=== PATIENT | male | born 1975 | race Caucasian/White ===

== ENCOUNTER 2018-10-14 21:44 | Inpatient (IN) | payer MEDICAID, OTHER ==
[2018-10-14] MEDS ORDERED: Sodium Chloride 0.9% 1,000 ML IV SCH (23:15)
[2018-10-14] MEDS ORDERED: Acetaminophen 325 MG Tab PO ONE (23:26)
[2018-10-14] MEDS ORDERED: Piperacillin/Tazobactam 4.5 GM in Sodium Chloride 0.9% 100 ML IV ONE (23:29)
[2018-10-15] MEDS ORDERED: Vancomycin 1.75 GM in Sodium Chloride 0.9% 500 ML IV ONE (00:39)
[2018-10-15] MEDS ORDERED: Ketorolac 30 MG/ML SDV IVPUSH SCH (00:45)
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
[2018-10-15] MEDS ORDERED: Lactated Ringers 1,000 ML IV ONE (01:43)
[2018-10-15] MEDS ORDERED: Acetaminophen 325 MG/10.15 ML ML PO PRN (02:40)
[2018-10-15] MEDS ORDERED: Lactated Ringers 1,000 ML IV SCH ×2 (02:45→04:30)
[2018-10-15] MEDS ORDERED: Acetaminophen 325 MG Tab PO PRN (05:01)
--- NOTE | 2018-10-15 08:16 | CR ---
Chest: Frontal view of the chest was obtained. Comparison: No prior chest x-ray. Heart size and mediastinum are normal. Lungs are clear. Bony structures are unremarkable. Impression: 1. Nothing acute is seen on frontal chest x-ray. Diagnostic code #1
--- NOTE | 2018-10-15 13:06 | PCM.HP.2 ---
<PowellTimbo - Last Filed: 10/15/18 12:56> H&P History of Present Illness - General Date of Service: 10/15/18 Admit Problem/Dx: Admission Diagnosis/Problem Admission Diagnosis/Problem Sepsis Source of Information: Patient History Limitations: Reports: No Limitations - History of Present Illness Initial Comments - Free Text/Narative: Patient is 43 yo male with history of crush fracture to left leg presents to med /surg upon admission from ED due to high fever and bacteremia. Patient states he had been feeling feverish for approximately 3 days. He took his temperature at home yesterday and it was 103.9. He decided to come to the ED at this time. His temperature was recorded as 103.9 in the ED as well. Patient states he was having chills and feeling sweaty. patient had a crush injury to his left femur on 08/30/18 for which he had a nicolasa and screws placed. he states that there has been no pain outside of normal associated with the wound. it is not red or swollen and he able to bear weight on it. He has been seeing PT for his rehabilitation. He had left lynnette in the wound, and they were removed in the ED before admission. Patient reports that he had a urinary catheter placed during surgery, which was not removed until two weeks post surgery. He has been having dysuria since the catheter was placed. He notes cloudy and foul-smelling urine for the past 2 weeks. He has not noticed any raman blood in his urine. He also notes some pain on his sides. Initial labs taken in ER show WBC 10.34, Neutrophils 91.6, Sodium 135, Glucose 200, CRP 18. UA shows 1+ blood, 1+ leukocyte esterase, 5-10 WBC - Related Data Allergies/Adverse Reactions: Allergies Allergy/AdvReac Type Severity Reaction Status Date / Time hydrocodone Allergy Itching Verified 10/14/18 22:00 Home Medications: Home Meds Acetaminophen [Tylenol Extra Strength] 1,000 mg PO Q4HR PRN 10/15/18 [History] Ibuprofen 400 mg PO Q4HR PRN 10/15/18 [History] Past Medical History - Past Health History Medical/Surgical History: Denies Medical/Surgical History HEENT History: Reports: Impaired Vision, Other (See Below) Other HEENT History: Pt verbalized is suppose to wear glasses but does not have any Genitourinary History: Reports: Other (See Below) Other Genitourinary History: Pt has difficulty voiding in public Musculoskeletal History: Reports: Other (See Below) Other Musculoskeletal History: left femur fracture- has nicolasa in femur at this time. This was related to a crushing injury 08/30/18 - Past Surgical History HEENT Surgical History: Reports: None Male Surgical History: Reports: None Musculoskeletal Surgical History: Reports: None Social & Family History - Family History Family Medical History: Noncontributory - Tobacco Use Smoking Status *Q: Former Smoker Years of Tobacco use: 13 Packs/Tins Daily: 1 Used Tobacco, but Quit: No Tobacco Use Comment: Pt quit cigarettes 7 years ago., Had smoked for 6 years. Pt changed to long cut chew when quit cigarettes Second Hand Smoke Exposure: No - Caffeine Use Caffeine Use: Reports: Soda - Recreational Drug Use Recreational Drug Use: No H&P Review of Systems - Review of Systems: General: Reports: Fever, Chills, Diaphoresis HEENT: Reports: Headaches (associated with fever), Visual Changes (Blurry vision associated with fever) Pulmonary: Reports: Shortness of Breath, Cough (dry cough) Cardiovascular: Reports: No Symptoms Gastrointestinal: Reports: No Symptoms Genitourinary: Reports: Dysuria, Frequency, Burning, Urgency, Flank Pain Musculoskeletal: Reports: Leg Pain Skin: Reports: No Symptoms Psychiatric: Reports: No Symptoms Neurological: Reports: No Symptoms Hematologic/Lymphatic: Reports: No Symptoms Immunologic: Reports: No Symptoms Exam - Vital Signs Vital Signs: Last Vital Signs Temp 99.7 F 10/15/18 11:26 Pulse 80 10/15/18 11:26 Resp 14 10/15/18 11:26 BP 118/62 10/15/18 11:26 Pulse Ox 98 10/15/18 11:26 Weight: 78.653 kg - Exam General: Alert, Oriented, Cooperative HEENT: Conjunctiva Clear, EACs Clear, EOMI, Hearing Intact, Mucosa Moist & [place] , Nares Patent, Pupils Equal, Pupils Reactive. No: Scleral Icterus Neck: Supple, Trachea Midline, Full Range of Motion. No: Lymphadenopathy, JVD, Thyromegaly Lungs: Clear to Auscultation, Normal Respiratory Effort. No: Crackles, Rales, Wheezing Cardiovascular: Regular Rate, Regular Rhythm, Normal S1, Normal S2. No: Systolic Murmur, Diastolic Murmur, Rubs, Gallop/S3, Gallop/S4 GI/Abdominal Exam: Normal Bowel Sounds, Soft, Non-Tender, No Organomegaly, No Distention, No Mass (Male) Exam: Deferred Rectal (Males) Exam: Deferred Back Exam: Normal Inspection, Full Range of Motion. No: CVA Tenderness (L), CVA Tenderness (R), Paraspinal Tenderness, Vertebral Tenderness Extremities: Normal Inspection, Normal Range of Motion, Non-Tender, No Pedal Edema, Leg Pain. No: Joint Swelling Skin: Warm, Dry, Intact Neurological: Cranial Nerves Intact, Normal Speech, Normal Tone. No: Focal Deficit Neuro Extensive - Mental Status: Alert, Oriented x3, Normal Mood/Affect, Normal Cognition, Memory Intact Neuro Extensive - Motor, Sensory, Reflexes: CN II-XII Intact. No: Dysarthria Psychiatric: Alert, Normal Affect, Normal Mood. No: Anxious, Agitated - Patient Data Lab Results Last 24 hrs: Laboratory Results - last 24 hr 10/14/18 10/14/18 10/14/18 Range/Units 22:15 22:15 22:15 WBC 10.34 H (4.23-9.07) K/mm3 RBC 4.15 L (4.63-6.08) M/mm3 Hgb 12.1 L D (13.7-17.5) gm/L Hct 37.7 L (40.1-51.0) % MCV 90.8 (79.0-92.2) fl MCH 29.2 (25.7-32.2) pg MCHC 32.1 L (32.2-35.5) g/dl RDW Std Deviation 41.9 (35.1-43.9) fL Plt Count 241 (163-337) K/mm3 MPV 9.6 (9.4-12.3) fl Neut % (Auto) 91.6 H (34.0-67.9) % Lymph % (Auto) 4.8 L (21.8-53.1) % [place] % (Auto) 3.3 L (5.3-12.2) % Eos % (Auto) 0 L (0.8-7.0) Baso % (Auto) 0.1 (0.1-1.2) % Neut # (Auto) 9.47 H (1.78-5.38) K/mm3 Lymph # (Auto) 0.50 L (1.32-3.57) K/mm3 [place] # (Auto) 0.34 (0.30-0.82) K/mm3 Eos # (Auto) 0.00 L (0.04-0.54) K/mm3 Baso # (Auto) 0.01 (0.01-0.08) K/mm3 Manual Slide Review Normal smear Sodium 135 L (136-145) mEq/L Potassium 3.7 (3.5-5.1) mEq/L Chloride 99 (98-107) mEq/L Carbon Dioxide 29 (21-32) mEq/L Anion Gap 10.7 (5-15) BUN 10 (7-18) mg/dL Creatinine 1.0 (0.7-1.3) mg/dL Est Cr Clr Drug Dosing 103.54 mL/min Estimated GFR (MDRD) > 60 (>60) mL/min BUN/Creatinine Ratio 10.0 L (14-18) Glucose 200 H (74-106) mg/dL Lactic Acid (0.4-2.0) mmol/L Calcium 8.4 L D (8.5-10.1) mg/dL Total Bilirubin 0.3 (0.2-1.0) mg/dL AST 18 (15-37) U/L ALT 26 (16-63) U/L Alkaline Phosphatase 159 H (46-116) U/L C-Reactive Protein 18.0 H* (<1.0) mg/dL Total Protein 6.4 (6.4-8.2) g/dl Albumin 3.0 L (3.4-5.0) g/dl Globulin 3.4 gm/dL Albumin/Globulin Ratio 0.9 L (1-2) Urine Color (Yellow) Urine Appearance (Clear) Urine pH (5.0-8.0) Ur Specific [place] (1.005-1.030) Urine Protein (Negative) Urine Glucose (UA) (Negative) Urine Ketones (Negative) Urine Occult Blood (Negative) Urine Nitrite (Negative) Urine Bilirubin (Negative) Urine Urobilinogen (0.2-1.0) Ur Leukocyte Esterase (Negative) Urine RBC (0-5) /hpf Urine WBC (0-5) /hpf Ur Epithelial Cells (0-5) /hpf Urine Bacteria (FEW) /hpf Urine Mucus (FEW) /hpf 10/14/18 10/15/18 Range/Units 23:15 04:40 WBC (4.23-9.07) K/mm3 RBC (4.63-6.08) M/mm3 Hgb (13.7-17.5) gm/L Hct (40.1-51.0) % MCV (79.0-92.2) fl MCH (25.7-32.2) pg MCHC (32.2-35.5) g/dl RDW Std Deviation (35.1-43.9) fL Plt Count (163-337) K/mm3 MPV (9.4-12.3) fl Neut % (Auto) (34.0-67.9) % Lymph % (Auto) (21.8-53.1) % [place] % (Auto) (5.3-12.2) % Eos % (Auto) (0.8-7.0) Baso % (Auto) (0.1-1.2) % Neut # (Auto) (1.78-5.38) K/mm3 Lymph # (Auto) (1.32-3.57) K/mm3 [place] # (Auto) (0.30-0.82) K/mm3 Eos # (Auto) (0.04-0.54) K/mm3 Baso # (Auto) (0.01-0.08) K/mm3 Manual Slide Review Sodium (136-145) mEq/L Potassium (3.5-5.1) mEq/L Chloride (98-107) mEq/L Carbon Dioxide (21-32) mEq/L Anion Gap (5-15) BUN (7-18) mg/dL Creatinine (0.7-1.3) mg/dL Est Cr Clr Drug Dosing mL/min Estimated GFR (MDRD) (>60) mL/min BUN/Creatinine Ratio (14-18) Glucose (74-106) mg/dL Lactic Acid 1.3 (0.4-2.0) mmol/L Calcium (8.5-10.1) mg/dL Total Bilirubin (0.2-1.0) mg/dL AST (15-37) U/L ALT (16-63) U/L Alkaline Phosphatase (46-116) U/L C-Reactive Protein (<1.0) mg/dL Total Protein (6.4-8.2) g/dl Albumin (3.4-5.0) g/dl Globulin gm/dL Albumin/Globulin Ratio (1-2) Urine Color Yellow (Yellow) Urine Appearance Clear (Clear) Urine pH 6.0 (5.0-8.0) Ur Specific [place] <=1.005 (1.005-1.030) Urine Protein Negative (Negative) Urine Glucose (UA) Negative (Negative) Urine Ketones Negative (Negative) Urine Occult Blood 1+ H (Negative) Urine Nitrite Negative (Negative) Urine Bilirubin Negative (Negative) Urine Urobilinogen 0.2 (0.2-1.0) Ur Leukocyte Esterase 1+ H (Negative) Urine RBC 0-5 (0-5) /hpf Urine WBC 5-10 H (0-5) /hpf Ur Epithelial Cells 0-5 (0-5) /hpf Urine Bacteria Rare (FEW) /hpf Urine Mucus Not seen (FEW) /hpf Result Diagrams: 10/14/18 22:15 10/14/18 22:15 [place] Results Last 24 hrs: Microbiology 10/14/18 23:15 Anaerobic Blood Culture - Preliminary Blood Gram Negative Rods 10/14/18 22:00 Influenza Type A Antigen Screen - Final Nasal Aspirate, Right NEGATIVE INFLUENZA A VIRUS AG REFERENCE RANGE: NEGATIVE Influenza Type B Antigen Screen - Final NEGATIVE INFLUENZA B VIRUS AG REFERENCE RANGE: NEGATIVE - Problem List (1) Sepsis SNOMED Code(s): 99644281 ICD Code: A41.9 - SEPSIS, UNSPECIFIED ORGANISM Status: Acute Current Visit: Yes Qualifiers: Sepsis type: sepsis due to unspecified organism Sepsis acute organ dysfunction status: without acute organ dysfunction Qualified Code(s): A41.9 - Sepsis, unspecified organism (2) UTI, Urinary tract infectious disease SNOMED Code(s): 43228015 ICD Code: N39.0 - URINARY TRACT INFECTION, SITE NOT SPECIFIED Status: Acute Current Visit: No Problem List Initiated/Reviewed/Updated: Yes Orders Last 24hrs: Active Orders 24 hr Category Date Time Status Admission Status [Patient Status] [ADT] Routine ADT 10/15/18 01:27 Active Activity as Tolerated [RC] BID Care 10/15/18 02:38 Active Antiembolic Devices [RC] BID Care 10/15/18 09:14 Active Regular Diet [DIET] Diet 10/15/18 Breakfast Active CULTURE BLOOD [BC] Stat Lab 10/14/18 23:15 Results CULTURE BLOOD [BC] Stat Lab 10/14/18 23:25 Received GLYCOSYLATED HEMOGLOBIN,HGBA1C [CHEM] Routine Lab 10/16/18 06:00 Ordered Acetaminophen [Tylenol] Med 10/15/18 07:15 Active 975 mg PO Q6H PRN SCD [Sequential Compression Device] [OM.PC] Routine Oth 10/15/18 09:14 Ordered Resuscitation Status Routine Resus Stat 10/15/18 02:36 Ordered Medication Orders Acetaminophen (Tylenol) 975 mg PO Q6H PRN PRN Reason: Pain/Fever Assessment/Plan Comment:: Assessment: Acute: Bacteremia,Sepsis * Elevated WBC at 10.34 CRP=18 * Fever 103.9 upon admission from ED * Blood cultures growing out gram negative rods Hyperglycemia * Glucose 200 on admission from ED * Continue to monitor * Patient denies history of diabetes Urinary tract infection * Patient reports symptoms: dysuria, cloudy, foul-smelling urine, flank pain * Blood, leukocyte esterase, WBC in urine * Had urinary catheter for 2 weeks post surgery Plan: Admit to med/surg IV antibiotics for bacteremia Sepsis protocol Monitor blood glucose Monitor left leg for signs of infection Activity as tolerated PT/OT for therapies Additional orders as above Code status= full code Length of stay = 3-4 days Prognosis guarded-serious <Derian Petersen T - Last Filed: 10/15/18 22:11> H&P History of Present Illness - General Admit Problem/Dx: Admission Diagnosis/Problem Admission Diagnosis/Problem Sepsis H&P Review of Systems - Review of Systems: Review Of Systems: See Below Exam - Exam Exam: See Below - Vital Signs Vital Signs: Last Vital Signs Temp 37.9 C 10/15/18 21:38 Pulse 101 H 10/15/18 21:35 Resp 20 10/15/18 21:35 BP 148/64 H 10/15/18 21:35 Pulse Ox 100 10/15/18 21:35 - Patient Data Lab Results Last 24 hrs: Laboratory Results - last 24 hr 10/14/18 10/14/18 10/14/18 Range/Units 22:15 22:15 22:15 WBC 10.34 H (4.23-9.07) K/mm3 RBC 4.15 L (4.63-6.08) M/mm3 Hgb 12.1 L D (13.7-17.5) gm/L Hct 37.7 L (40.1-51.0) % MCV 90.8 (79.0-92.2) fl MCH 29.2 (25.7-32.2) pg MCHC 32.1 L (32.2-35.5) g/dl RDW Std Deviation 41.9 (35.1-43.9) fL Plt Count 241 (163-337) K/mm3 MPV 9.6 (9.4-12.3) fl Neut % (Auto) 91.6 H (34.0-67.9) % Lymph % (Auto) 4.8 L (21.8-53.1) % [place] % (Auto) 3.3 L (5.3-12.2) % Eos % (Auto) 0 L (0.8-7.0) Baso % (Auto) 0.1 (0.1-1.2) % Neut # (Auto) 9.47 H (1.78-5.38) K/mm3 Lymph # (Auto) 0.50 L (1.32-3.57) K/mm3 [place] # (Auto) 0.34 (0.30-0.82) K/mm3 Eos # (Auto) 0.00 L (0.04-0.54) K/mm3 Baso # (Auto) 0.01 (0.01-0.08) K/mm3 Manual Slide Review Normal smear Sodium 135 L (136-145) mEq/L Potassium 3.7 (3.5-5.1) mEq/L Chloride 99 (98-107) mEq/L Carbon Dioxide 29 (21-32) mEq/L Anion Gap 10.7 (5-15) BUN 10 (7-18) mg/dL Creatinine 1.0 (0.7-1.3) mg/dL Est Cr Clr Drug Dosing 103.54 mL/min Estimated GFR (MDRD) > 60 (>60) mL/min BUN/Creatinine Ratio 10.0 L (14-18) Glucose 200 H (74-106) mg/dL Lactic Acid (0.4-2.0) mmol/L Calcium 8.4 L D (8.5-10.1) mg/dL Total Bilirubin 0.3 (0.2-1.0) mg/dL AST 18 (15-37) U/L ALT 26 (16-63) U/L Alkaline Phosphatase 159 H (46-116) U/L C-Reactive Protein 18.0 H* (<1.0) mg/dL Total Protein 6.4 (6.4-8.2) g/dl Albumin 3.0 L (3.4-5.0) g/dl Globulin 3.4 gm/dL Albumin/Globulin Ratio 0.9 L (1-2) Urine Color (Yellow) Urine Appearance (Clear) Urine pH (5.0-8.0) Ur Specific [place] (1.005-1.030) Urine Protein (Negative) Urine Glucose (UA) (Negative) Urine Ketones (Negative) Urine Occult Blood (Negative) Urine Nitrite (Negative) Urine Bilirubin (Negative) Urine Urobilinogen (0.2-1.0) Ur Leukocyte Esterase (Negative) Urine RBC (0-5) /hpf Urine WBC (0-5) /hpf Ur Epithelial Cells (0-5) /hpf Urine Bacteria (FEW) /hpf Urine Mucus (FEW) /hpf 10/14/18 10/15/18 10/15/18 Range/Units 23:15 04:40 14:18 WBC (4.23-9.07) K/mm3 RBC (4.63-6.08) M/mm3 Hgb (13.7-17.5) gm/L Hct (40.1-51.0) % MCV (79.0-92.2) fl MCH (25.7-32.2) pg MCHC (32.2-35.5) g/dl RDW Std Deviation (35.1-43.9) fL Plt Count (163-337) K/mm3 MPV (9.4-12.3) fl Neut % (Auto) (34.0-67.9) % Lymph % (Auto) (21.8-53.1) % [place] % (Auto) (5.3-12.2) % Eos % (Auto) (0.8-7.0) Baso % (Auto) (0.1-1.2) % Neut # (Auto) (1.78-5.38) K/mm3 Lymph # (Auto) (1.32-3.57) K/mm3 [place] # (Auto) (0.30-0.82) K/mm3 Eos # (Auto) (0.04-0.54) K/mm3 Baso # (Auto) (0.01-0.08) K/mm3 Manual Slide Review Sodium (136-145) mEq/L Potassium (3.5-5.1) mEq/L Chloride (98-107) mEq/L Carbon Dioxide (21-32) mEq/L Anion Gap (5-15) BUN (7-18) mg/dL Creatinine (0.7-1.3) mg/dL Est Cr Clr Drug Dosing mL/min Estimated GFR (MDRD) (>60) mL/min BUN/Creatinine Ratio (14-18) Glucose (74-106) mg/dL Lactic Acid 1.3 (0.4-2.0) mmol/L Calcium (8.5-10.1) mg/dL Total Bilirubin (0.2-1.0) mg/dL AST (15-37) U/L ALT (16-63) U/L Alkaline Phosphatase (46-116) U/L C-Reactive Protein 18.3 H* (<1.0) mg/dL Total Protein (6.4-8.2) g/dl Albumin (3.4-5.0) g/dl Globulin gm/dL Albumin/Globulin Ratio (1-2) Urine Color Yellow (Yellow) Urine Appearance Clear (Clear) Urine pH 6.0 (5.0-8.0) Ur Specific [place] <=1.005 (1.005-1.030) Urine Protein Negative (Negative) Urine Glucose (UA) Negative (Negative) Urine Ketones Negative (Negative) Urine Occult Blood 1+ H (Negative) Urine Nitrite Negative (Negative) Urine Bilirubin Negative (Negative) Urine Urobilinogen 0.2 (0.2-1.0) Ur Leukocyte Esterase 1+ H (Negative) Urine RBC 0-5 (0-5) /hpf Urine WBC 5-10 H (0-5) /hpf Ur Epithelial Cells 0-5 (0-5) /hpf Urine Bacteria Rare (FEW) /hpf Urine Mucus Not seen (FEW) /hpf Result Diagrams: 10/14/18 22:15 10/14/18 22:15 [place] Results Last 24 hrs: Microbiology 10/14/18 23:15 Anaerobic Blood Culture - Preliminary Blood Gram Negative Rods 10/14/18 22:00 Influenza Type A Antigen Screen - Final Nasal Aspirate, Right NEGATIVE INFLUENZA A VIRUS AG REFERENCE RANGE: NEGATIVE Influenza Type B Antigen Screen - Final NEGATIVE INFLUENZA B VIRUS AG REFERENCE RANGE: NEGATIVE Problem List Initiated/Reviewed/Updated: Yes Orders Last 24hrs: Active Orders 24 hr Category Date Time Status Admission Status [Patient Status] [ADT] Routine ADT 10/15/18 01:27 Active Activity as Tolerated [RC] BID Care 10/15/18 02:38 Active Antiembolic Devices [RC] BID Care 10/15/18 09:14 Active Antiembolic Devices [RC] PER UNIT ROUTINE Care 10/15/18 15:57 Active Cardiac Monitoring [RC] CONTINUOUS Care 10/15/18 13:41 Active Height and Weight [RC] DAILY Care 10/15/18 13:40 Active Intake and Output [RC] 04,16 Care 10/15/18 13:41 Active Oxygen Therapy [RC] PRN Care 10/15/18 13:35 Active RT Aerosol Therapy [RC] ASDIRECTED Care 10/15/18 13:42 Active Up ad Shelli [RC] ASDIRECTED Care 10/15/18 13:40 Active VTE/DVT Education [RC] PER UNIT ROUTINE Care 10/15/18 13:35 Active Vital Signs [RC] Q4H Care 10/15/18 13:35 Active Consult to Case Management/Palliative Care Physician [CONS] Cons 10/15/18 13:40 Active Routine OT Evaluation and Treatment [CONS] Routine Cons 10/15/18 13:40 Active PT Evaluation and Treatment [CONS] Routine Cons 10/15/18 13:40 Active Regular Diet [DIET] Diet 10/15/18 Breakfast Active BASIC METABOLIC PANEL,BMP [CHEM] AM Lab 10/16/18 05:11 Ordered BASIC METABOLIC PANEL,BMP [CHEM] AM Lab 10/17/18 05:11 Ordered BASIC METABOLIC PANEL,BMP [CHEM] AM Lab 10/18/18 05:11 Ordered BASIC METABOLIC PANEL,BMP [CHEM] AM Lab 10/19/18 05:11 Ordered BASIC METABOLIC PANEL,BMP [CHEM] AM Lab 10/20/18 05:11 Ordered C-REACTIVE PROTEIN [CHEM] AM Lab 10/16/18 05:11 Ordered C-REACTIVE PROTEIN [CHEM] AM Lab 10/17/18 05:11 Ordered C-REACTIVE PROTEIN [CHEM] AM Lab 10/18/18 05:11 Ordered C-REACTIVE PROTEIN [CHEM] AM Lab 10/19/18 05:11 Ordered C-REACTIVE PROTEIN [CHEM] AM Lab 10/20/18 05:11 Ordered CBC WITH AUTO DIFF [HEME] AM Lab 10/16/18 05:11 Ordered CULTURE BLOOD [BC] Stat Lab 10/14/18 23:15 Results CULTURE BLOOD [BC] Stat Lab 10/14/18 23:25 Received GLYCOSYLATED HEMOGLOBIN,HGBA1C [CHEM] Routine Lab 10/16/18 06:00 Ordered MAGNESIUM [CHEM] AM Lab 10/16/18 05:11 Ordered MAGNESIUM [CHEM] AM Lab 10/17/18 05:11 Ordered MAGNESIUM [CHEM] AM Lab 10/18/18 05:11 Ordered MAGNESIUM [CHEM] AM Lab 10/19/18 05:11 Ordered MAGNESIUM [CHEM] AM Lab 10/20/18 05:11 Ordered Acetaminophen [Tylenol] Med 10/15/18 07:15 Active 975 mg PO Q6H PRN Albuterol/Ipratropium [DuoNeb 3.0-0.5 MG/3 ML] Med 10/15/18 13:40 Active 3 ml NEB Q4H PRN Bisacodyl [Dulcolax] Med 10/15/18 13:40 Active 5 mg PO DAILY PRN Docusate Sodium [Colace] Med 10/15/18 13:40 Active 100 mg PO BID PRN Docusate Sodium/Sennosides [Senna Plus] Med 10/15/18 13:40 Active 1 tab PO BID PRN HYDROmorphone [Dilaudid] Med 10/15/18 13:40 Active 0.25 mg IVPUSH Q2H PRN Ketorolac [Toradol] Med 10/15/18 13:40 Active 30 mg IV Q6H PRN Ondansetron [Zofran] Med 10/15/18 13:40 Active 4 mg IV Q6H PRN Piperacillin/Tazobactam [Piperacil-Tazobact] 4.5 gm Med 10/15/18 14:00 Active Sodium Chloride 0.9% [Normal Saline] 100 ml IV Q8H Polyethylene Glycol 3350 [MiraLAX] Med 10/15/18 13:40 Active 17 gm PO DAILY PRN Promethazine [Phenergan] 6.25 mg Med 10/15/18 13:40 Active Sodium Chloride 0.9% [Normal Saline] 50 ml IV Q6H Temazepam [Restoril] Med 10/15/18 21:00 Active 15 mg PO BEDTIME PRN SCD [Sequential Compression Device] [OM.PC] Routine Oth 10/15/18 09:14 Ordered SCD [Sequential Compression Device] [OM.PC] Routine Oth 10/15/18 15:57 Ordered Resuscitation Status Routine Resus Stat 10/15/18 02:36 Ordered Medication Orders Acetaminophen (Tylenol) 975 mg PO Q6H PRN PRN Reason: Pain/Fever Last Admin: 10/15/18 21:38 Dose: 975 mg Albuterol/Ipratropium (Duoneb 3.0-0.5 Mg/3 Ml) 3 ml NEB Q4H PRN PRN Reason: Shortness Of Breath/wheezing Bisacodyl (Dulcolax) 5 mg PO DAILY PRN PRN Reason: Constipation Docusate Sodium (Colace) 100 mg PO BID PRN PRN Reason: Constipation Hydromorphone HCl (Dilaudid) 0.25 mg IVPUSH Q2H PRN PRN Reason: Pain (severe 7-10) Piperacillin Sod/Tazobactam (Sod 4.5 gm/ Sodium Chloride) 100 mls @ 25 mls/hr IV Q8H KRISTIE Last Admin: 10/15/18 21:39 Dose: 25 mls/hr Infusion: 10/15/18 18:09 Dose: 25 mls/hr Admin: 10/15/18 14:09 Dose: 25 mls/hr Promethazine HCl 6.25 mg/ (Sodium Chloride) 50.25 mls @ 100 mls/hr IV Q6H PRN PRN Reason: Nausea/Vomiting Ketorolac Tromethamine (Toradol) 30 mg IV Q6H PRN PRN Reason: Pain (moderate 4-6) Last Admin: 10/15/18 14:18 Dose: 30 mg Ondansetron HCl (Zofran) 4 mg IV Q6H PRN PRN Reason: Nausea/Vomiting Polyethylene Glycol (Miralax) 17 gm PO DAILY PRN PRN Reason: Constipation Senna/Docusate Sodium (Senna Plus) 1 tab PO BID PRN PRN Reason: Constipation Temazepam (Restoril) 15 mg PO BEDTIME PRN PRN Reason: Sleep Assessment/Plan Comment:: Patient carries a hx/o urinary retention and reports dysuria. His UA is unimpressive but got a call this afternoon from microbiology that his blood culture grew GNR. Patient meets criteria for Sepsis on admission and he is now bacteremic with GNR organism. Patient was admitted overnight. Will resume home medications, routine AM labs, DVT/GI prophylaxis and monitor for signs of infection on left lower extremity. His BS was elevated, we will screen him for diabetes. So he states, he feels much better this morning and reports no acute issues. The patient was seen and examined in concert with the medical student. The admission assessment and plans were discussed and agreed upon with me. Any changes or recommendations will be based on the patient's course.
[2018-10-15] MEDS ORDERED: Polyethylene Glycol 3350 Powder 17 GM Packet PO PRN (13:40)
[2018-10-15] MEDS ORDERED: HYDROmorphone 0.5 MG/0.5 ML Syringe IVPUSH PRN (13:40)
[2018-10-15] MEDS ORDERED: Ondansetron 4 MG/2 ML SDV IV PRN (13:40)
[2018-10-15] MEDS ORDERED: Bisacodyl 5 MG Tab PO PRN (13:40)
[2018-10-15] MEDS ORDERED: Promethazine 6.25 MG in Sodium Chloride 0.9% 50 ML IV PRN (13:40)
[2018-10-15] MEDS ORDERED: Albuterol/Ipratropium 3.0-0.5 MG/3 ML Neb Soln NEB PRN (13:40)
[2018-10-15] MEDS ORDERED: Docusate Sodium 100 MG Cap PO PRN (13:40)
[2018-10-15] MEDS: Piperacillin/Tazobactam 4.5 GM in Sodium Chloride 0.9% 100 ML IV SCH ×2 (14:09→21:39)
[2018-10-15] MEDS: Ketorolac 30 MG/ML SDV IV PRN (14:18)
[2018-10-15] MEDS ORDERED: Temazepam 15 MG Cap PO PRN (21:00)
[2018-10-15] MEDS: Acetaminophen 325 MG Tab PO PRN (21:38)
[2018-10-16] MEDS: Acetaminophen 325 MG Tab PO PRN ×2 (05:12→11:52)
[2018-10-16] MEDS: Piperacillin/Tazobactam 4.5 GM in Sodium Chloride 0.9% 100 ML IV SCH ×3 (05:14→21:03)
[2018-10-16 08:26] LABS: HEMOGLOBIN A1C 5.3 % (4.50-6.20)
[2018-10-16] MEDS ORDERED: Magnesium Sulfate/Water 2 GM in Premix Bag 1 BAG IV ONE (09:03)
--- NOTE | 2018-10-16 09:05 | PCM.PN ---
- General Info Date of Service: 10/16/18 Admission Dx/Problem (Free Text): Admission Diagnosis/Problem Admission Diagnosis/Problem Sepsis Subjective Update: Follow Up Functional Status: Reports: Pain Controlled, Tolerating Diet, Ambulating, Urinating, New Symptoms (tingly at night ) - Review of Systems General: Denies: Fever, Weakness, Fatigue, Malaise, Chills HEENT: Reports: No Symptoms Pulmonary: Denies: Shortness of Breath Cardiovascular: Denies: Chest Pain, Dyspnea on Exertion, Lightheadedness Gastrointestinal: Denies: Abdominal Pain, Nausea, Vomiting Genitourinary: Reports: No Symptoms Musculoskeletal: Reports: No Symptoms Skin: Denies: Cyanosis Neurological: Reports: Difficulty Walking, Gait Disturbance. Denies: Confusion , Weakness Psychiatric: Denies: Depression, Anxiety, Agitation, Hallucinations Systems Review Comment:: No significant overnight or acute issues. He did not rest well due to multiple room activities. He is otherwise stable and no acute issues. He is afebrile now with resolved leukocytosis. His Mg level is 1.7 and CRP is now down to 15 from 18K. - Patient Data Vitals - Most Recent: Last Vital Signs Temp 36.6 C 10/16/18 08:03 Pulse 71 10/16/18 08:03 Resp 16 10/16/18 08:03 BP 125/82 10/16/18 08:03 Pulse Ox 97 10/16/18 08:03 Weight - Most Recent: 79.696 kg I&O - Last 24 Hours: Intake & Output 10/15/18 10/16/18 10/16/18 22:59 06:59 14:59 Intake Total 2290 400 Output Total 900 Balance 1390 400 Lab Results Last 24 Hours: Laboratory Results - last 24 hr 10/15/18 10/16/18 10/16/18 Range/Units 14:18 06:11 06:11 WBC 4.87 (4.23-9.07) K/mm3 RBC 3.86 L (4.63-6.08) M/mm3 Hgb 11.0 L (13.7-17.5) gm/L Hct 34.7 L (40.1-51.0) % MCV 89.9 (79.0-92.2) fl MCH 28.5 (25.7-32.2) pg MCHC 31.7 L (32.2-35.5) g/dl RDW Std Deviation 41.0 (35.1-43.9) fL Plt Count 197 (163-337) K/mm3 MPV 10.6 (9.4-12.3) fl Neut % (Auto) 74.1 H (34.0-67.9) % Lymph % (Auto) 18.1 L (21.8-53.1) % [place] % (Auto) 6.6 (5.3-12.2) % Eos % (Auto) 0.8 (0.8-7.0) Baso % (Auto) 0.2 (0.1-1.2) % Neut # (Auto) 3.61 (1.78-5.38) K/mm3 Lymph # (Auto) 0.88 L (1.32-3.57) K/mm3 [place] # (Auto) 0.32 (0.30-0.82) K/mm3 Eos # (Auto) 0.04 (0.04-0.54) K/mm3 Baso # (Auto) 0.01 (0.01-0.08) K/mm3 Sodium (136-145) mEq/L Potassium (3.5-5.1) mEq/L Chloride (98-107) mEq/L Carbon Dioxide (21-32) mEq/L Anion Gap (5-15) BUN (7-18) mg/dL Creatinine (0.7-1.3) mg/dL Est Cr Clr Drug Dosing mL/min Estimated GFR (MDRD) (>60) mL/min BUN/Creatinine Ratio (14-18) Glucose (74-106) mg/dL Hemoglobin A1c 5.30 (4.50-6.20) % Calcium (8.5-10.1) mg/dL Magnesium (1.8-2.4) mg/dl C-Reactive Protein 18.3 H* (<1.0) mg/dL 10/16/18 Range/Units 06:11 WBC (4.23-9.07) K/mm3 RBC (4.63-6.08) M/mm3 Hgb (13.7-17.5) gm/L Hct (40.1-51.0) % MCV (79.0-92.2) fl MCH (25.7-32.2) pg MCHC (32.2-35.5) g/dl RDW Std Deviation (35.1-43.9) fL Plt Count (163-337) K/mm3 MPV (9.4-12.3) fl Neut % (Auto) (34.0-67.9) % Lymph % (Auto) (21.8-53.1) % [place] % (Auto) (5.3-12.2) % Eos % (Auto) (0.8-7.0) Baso % (Auto) (0.1-1.2) % Neut # (Auto) (1.78-5.38) K/mm3 Lymph # (Auto) (1.32-3.57) K/mm3 [place] # (Auto) (0.30-0.82) K/mm3 Eos # (Auto) (0.04-0.54) K/mm3 Baso # (Auto) (0.01-0.08) K/mm3 Sodium 137 (136-145) mEq/L Potassium 3.8 (3.5-5.1) mEq/L Chloride 104 (98-107) mEq/L Carbon Dioxide 26 (21-32) mEq/L Anion Gap 10.8 (5-15) BUN 10 (7-18) mg/dL Creatinine 0.8 (0.7-1.3) mg/dL Est Cr Clr Drug Dosing 129.42 mL/min Estimated GFR (MDRD) > 60 (>60) mL/min BUN/Creatinine Ratio 12.5 L (14-18) Glucose 94 (74-106) mg/dL Hemoglobin A1c (4.50-6.20) % Calcium 7.7 L (8.5-10.1) mg/dL Magnesium 1.7 L (1.8-2.4) mg/dl C-Reactive Protein 15.1 H* (<1.0) mg/dL [place] Results Last 24 Hours: Microbiology 10/14/18 23:25 Aerobic Blood Culture - Preliminary Blood Gram Negative Rods Anaerobic Blood Culture - Preliminary NO GROWTH AFTER 1 DAY 10/14/18 23:15 Aerobic Blood Culture - Preliminary Blood NO GROWTH AFTER 1 DAY Anaerobic Blood Culture - Preliminary Gram Negative Rods Med Orders - Current: Current Medications Acetaminophen (Tylenol) 975 mg PO Q6H PRN PRN Reason: Pain/Fever Last Admin: 10/16/18 05:12 Dose: 975 mg Albuterol/Ipratropium (Duoneb 3.0-0.5 Mg/3 Ml) 3 ml NEB Q4H PRN PRN Reason: Shortness Of Breath/wheezing Bisacodyl (Dulcolax) 5 mg PO DAILY PRN PRN Reason: Constipation Docusate Sodium (Colace) 100 mg PO BID PRN PRN Reason: Constipation Hydromorphone HCl (Dilaudid) 0.25 mg IVPUSH Q2H PRN PRN Reason: Pain (severe 7-10) Piperacillin Sod/Tazobactam (Sod 4.5 gm/ Sodium Chloride) 100 mls @ 25 mls/hr IV Q8H [facility] Last Admin: 10/16/18 05:14 Dose: 25 mls/hr Promethazine HCl 6.25 mg/ (Sodium Chloride) 50.25 mls @ 100 mls/hr IV Q6H PRN PRN Reason: Nausea/Vomiting Ketorolac Tromethamine (Toradol) 30 mg IV Q6H PRN PRN Reason: Pain (moderate 4-6) Last Admin: 10/15/18 14:18 Dose: 30 mg Ondansetron HCl (Zofran) 4 mg IV Q6H PRN PRN Reason: Nausea/Vomiting Polyethylene Glycol (Miralax) 17 gm PO DAILY PRN PRN Reason: Constipation Senna/Docusate Sodium (Senna Plus) 1 tab PO BID PRN PRN Reason: Constipation Temazepam (Restoril) 15 mg PO BEDTIME PRN PRN Reason: Sleep Discontinued Medications Acetaminophen (Tylenol) 975 mg PO NOW ONE Stop: 10/14/18 23:27 Last Admin: 10/14/18 23:48 Dose: 975 mg Acetaminophen (Tylenol) 975 mg PO Q4H PRN PRN Reason: Pain/Fever Sodium Chloride (Normal Saline) 1,000 mls @ 999 mls/hr IV ONETIME [facility] Last Admin: 10/14/18 23:48 Dose: 999 mls/hr Piperacillin Sod/Tazobactam (Sod 4.5 gm/ Sodium Chloride) 100 mls @ 25 mls/hr IV Q8H ONE Stop: 10/15/18 03:28 Last Admin: 10/14/18 23:48 Dose: 25 mls/hr Vancomycin HCl 1.75 gm/ Sodium (Chloride) 500 mls @ 250 mls/hr IV ONETIME ONE Stop: 10/15/18 00:40 Last Admin: 10/15/18 01:03 Dose: 250 mls/hr Lactated Ringer's (Ringers, Lactated) 1,000 mls @ 999 mls/hr IV .BOLUS ONE Stop: 10/15/18 02:43 Last Admin: 10/15/18 03:18 Dose: 999 mls/hr Lactated Ringer's (Ringers, Lactated) 1,000 mls @ 200 mls/hr IV ASDIRECTED [facility]RISTIE Last Admin: 10/15/18 04:39 Dose: 200 mls/hr Ketorolac Tromethamine (Toradol) 30 mg IVPUSH ONETIME [facility] Last Admin: 10/15/18 00:48 Dose: 30 mg - Exam General: Alert, Oriented, Cooperative HEENT: Pupils Equal, Pupils Reactive, EOMI, Mucous Membr. Moist/[place] Neck: Supple Lungs: Clear to Auscultation, Normal Respiratory Effort Cardiovascular: Regular Rate, Regular Rhythm GI/Abdominal Exam: Normal Bowel Sounds, Soft, Non-Tender, No Organomegaly, No Distention, No Abnormal Bruit (Male) Exam: Deferred Back Exam: Normal Inspection, Decreased Range of Motion Extremities: Normal Inspection, Normal Range of Motion, Non-Tender, No Pedal Edema, Normal Capillary Refill, Other (left leg incision sties: clean dry intact , no edema or erythema, and non-tender to palpation) Skin: Warm, Dry, Intact Neurological: No New Focal Deficit. No: Normal Gait Psy/Mental Status: Alert, Normal Affect, Normal Mood - Problem List Review Problem List Initiated/Reviewed/Updated: Yes - My Orders Last 24 Hours: My Active Orders 10/15/18 09:14 Antiembolic Devices [RC] BID SCD [Sequential Compression Device] [OM.PC] Routine 10/15/18 13:35 Oxygen Therapy [RC] PRN VTE/DVT Education [RC] PER UNIT ROUTINE Vital Signs [RC] Q4H 10/15/18 13:40 Height and Weight [RC] 04 Up ad Shelli [RC] ASDIRECTED Consult to Case Management/County Judge [CONS] Routine OT Evaluation and Treatment [CONS] Routine PT Evaluation and Treatment [CONS] Routine Albuterol/Ipratropium [DuoNeb 3.0-0.5 MG/3 ML] 3 ml NEB Q4H PRN Bisacodyl [Dulcolax] 5 mg PO DAILY PRN Docusate Sodium [Colace] 100 mg PO BID PRN Docusate Sodium/Sennosides [Senna Plus] 1 tab PO BID PRN HYDROmorphone [Dilaudid] 0.25 mg IVPUSH Q2H PRN Ketorolac [Toradol] 30 mg IV Q6H PRN Ondansetron [Zofran] 4 mg IV Q6H PRN Polyethylene Glycol 3350 [MiraLAX] 17 gm PO DAILY PRN Promethazine [Phenergan] 6.25 mg Sodium Chloride 0.9% [Normal Saline] 50 ml IV Q6H 10/15/18 13:41 Cardiac Monitoring [RC] CONTINUOUS Intake and Output [RC] 04,16 10/15/18 13:42 RT Aerosol Therapy [RC] ASDIRECTED 10/15/18 14:00 Piperacillin/Tazobactam [Piperacil-Tazobact] 4.5 gm Sodium Chloride 0.9% [ Normal Saline] 100 ml IV Q8H 10/15/18 15:57 Antiembolic Devices [RC] PER UNIT ROUTINE SCD [Sequential Compression Device] [OM.PC] Routine 10/15/18 21:00 Temazepam [Restoril] 15 mg PO BEDTIME PRN 10/16/18 07:00 Echo Comp wo Cont [US] DAILY 10/16/18 09:03 Magnesium Sulfate/Water [Magnesium Sulfate in Water Premix] 2 gm Premix Bag 1 bag IV ONETIME 10/17/18 05:11 BASIC METABOLIC PANEL,BMP [CHEM] AM C-REACTIVE PROTEIN [CHEM] AM MAGNESIUM [CHEM] AM 10/18/18 05:11 BASIC METABOLIC PANEL,BMP [CHEM] AM C-REACTIVE PROTEIN [CHEM] AM MAGNESIUM [CHEM] AM 10/19/18 05:11 BASIC METABOLIC PANEL,BMP [CHEM] AM C-REACTIVE PROTEIN [CHEM] AM MAGNESIUM [CHEM] AM 10/20/18 05:11 BASIC METABOLIC PANEL,BMP [CHEM] AM C-REACTIVE PROTEIN [CHEM] AM MAGNESIUM [CHEM] AM - Plan Plan:: Assessment: Acute: Sepsis--> Bacteremia * Elevated WBC at 10.34--> 4.87; CRP 18--> 18.3 --> 15.1 * Fever 103.9, HR 101, WBC of 11.60, upon admission from ED * Blood cultures growing out gram negative rods * Presumptive 2/2 UTI Urinary Tract Infection * Patient reports symptoms: dysuria, cloudy, foul-smelling urine, flank pain * Blood, leukocyte esterase, WBC in urine * Had urinary catheter for 2 weeks post surgery * Unfortunately urine culture was not done; will repeat UA Left Lower Extremity * Incision sites: clean, dry, no edema, erythema and intact * No dehiscence Hypomagnesemia * Mg of 1.7 * 2/2 Inadequate intake * Replete and monitor Resolved: S/p Hyperglycemia * Glucose 200 on admission from ED--> 94 this AM * Likely 2/2 Stress * A1C is 5.30 * Patient denies history of diabetes Plan: He is clinically and hemodynamically stable. He is ambulating without assistance. Continue IV antibiotics Monitor left leg for signs of infection Activity as tolerated PT/OT to assess and treat Additional orders as above LOS anticipate > 96hrs pending repeat blood culture and 2D echo report Prognosis guarded-good
[2018-10-17] MEDS: Acetaminophen 325 MG Tab PO PRN (05:01)
[2018-10-17] MEDS: Piperacillin/Tazobactam 4.5 GM in Sodium Chloride 0.9% 100 ML IV SCH ×3 (05:03→21:15)
--- NOTE | 2018-10-17 07:23 | PCM.PN ---
- General Info Date of Service: 10/17/18 Admission Dx/Problem (Free Text): Admission Diagnosis/Problem Admission Diagnosis/Problem Sepsis Subjective Update: Follow Up Functional Status: Reports: Pain Controlled, Tolerating Diet, Ambulating, Urinating - Review of Systems General: Denies: Fever, Weakness, Fatigue, Malaise, Chills, Night Sweats HEENT: Reports: No Symptoms Pulmonary: Denies: Shortness of Breath, Sputum Cardiovascular: Denies: Palpitations, Dyspnea on Exertion, Orthopnea, PND, Lightheadedness Gastrointestinal: Denies: Abdominal Pain, Nausea, Vomiting Genitourinary: Reports: No Symptoms Musculoskeletal: Denies: Neck Pain, Hand Pain, Back Pain, Joint Swelling Skin: Reports: No Symptoms Neurological: Denies: Confusion, Difficulty Walking, Weakness, Gait Disturbance Psychiatric: Denies: Confusion, Depression, Anxiety, Agitation, Cravings, Hallucinations, Suicidal Ideation, Homicidal Ideation Systems Review Comment:: Had a slight temp overnight as night as 100.9F. He states he did not sleep well due to frequent room checks. His repeat UA consistent with UTI. His electrolytes are much better. His blood cultures for 1 day so far are negative. - Patient Data Vitals - Most Recent: Last Vital Signs Temp 37.8 C 10/17/18 05:01 Pulse 80 10/17/18 04:53 Resp 16 10/17/18 04:53 BP 132/75 10/17/18 04:53 Pulse Ox 98 10/17/18 04:53 Weight - Most Recent: 79.651 kg I&O - Last 24 Hours: Intake & Output 10/16/18 10/17/18 10/17/18 22:59 06:59 14:59 Intake Total 820 760 Output Total 1200 Balance 820 -440 Lab Results Last 24 Hours: Laboratory Results - last 24 hr 10/16/18 10/16/18 10/17/18 Range/Units 06:11 06:11 00:20 WBC 4.87 (4.23-9.07) K/mm3 RBC 3.86 L (4.63-6.08) M/mm3 Hgb 11.0 L (13.7-17.5) gm/L Hct 34.7 L (40.1-51.0) % MCV 89.9 (79.0-92.2) fl MCH 28.5 (25.7-32.2) pg MCHC 31.7 L (32.2-35.5) g/dl RDW Std Deviation 41.0 (35.1-43.9) fL Plt Count 197 (163-337) K/mm3 MPV 10.6 (9.4-12.3) fl Neut % (Auto) 74.1 H (34.0-67.9) % Lymph % (Auto) 18.1 L (21.8-53.1) % [place] % (Auto) 6.6 (5.3-12.2) % Eos % (Auto) 0.8 (0.8-7.0) Baso % (Auto) 0.2 (0.1-1.2) % Neut # (Auto) 3.61 (1.78-5.38) K/mm3 Lymph # (Auto) 0.88 L (1.32-3.57) K/mm3 [place] # (Auto) 0.32 (0.30-0.82) K/mm3 Eos # (Auto) 0.04 (0.04-0.54) K/mm3 Baso # (Auto) 0.01 (0.01-0.08) K/mm3 Sodium (136-145) mEq/L Potassium (3.5-5.1) mEq/L Chloride (98-107) mEq/L Carbon Dioxide (21-32) mEq/L Anion Gap (5-15) BUN (7-18) mg/dL Creatinine (0.7-1.3) mg/dL Est Cr Clr Drug Dosing mL/min Estimated GFR (MDRD) (>60) mL/min BUN/Creatinine Ratio (14-18) Glucose (74-106) mg/dL Hemoglobin A1c 5.30 (4.50-6.20) % Calcium (8.5-10.1) mg/dL Magnesium (1.8-2.4) mg/dl C-Reactive Protein (<1.0) mg/dL Urine Color Yellow (Yellow) Urine Appearance Clear (Clear) Urine pH 7.0 (5.0-8.0) Ur Specific [place] 1.020 (1.005-1.030) Urine Protein Negative (Negative) Urine Glucose (UA) Negative (Negative) Urine Ketones Negative (Negative) Urine Occult Blood 1+ H (Negative) Urine Nitrite Negative (Negative) Urine Bilirubin Negative (Negative) Urine Urobilinogen 2.0 H (0.2-1.0) Ur Leukocyte Esterase Trace H (Negative) Urine RBC 0-5 (0-5) /hpf Urine WBC 5-10 H (0-5) /hpf Ur Squamous Epith Cells 0-5 (0-5) /hpf Amorphous Sediment Moderate H (NOT SEEN) /hpf Urine Bacteria Moderate H (FEW) /hpf Urine Mucus Few (FEW) /hpf 10/17/18 Range/Units 05:01 WBC (4.23-9.07) K/mm3 RBC (4.63-6.08) M/mm3 Hgb (13.7-17.5) gm/L Hct (40.1-51.0) % MCV (79.0-92.2) fl MCH (25.7-32.2) pg MCHC (32.2-35.5) g/dl RDW Std Deviation (35.1-43.9) fL Plt Count (163-337) K/mm3 MPV (9.4-12.3) fl Neut % (Auto) (34.0-67.9) % Lymph % (Auto) (21.8-53.1) % [place] % (Auto) (5.3-12.2) % Eos % (Auto) (0.8-7.0) Baso % (Auto) (0.1-1.2) % Neut # (Auto) (1.78-5.38) K/mm3 Lymph # (Auto) (1.32-3.57) K/mm3 [place] # (Auto) (0.30-0.82) K/mm3 Eos # (Auto) (0.04-0.54) K/mm3 Baso # (Auto) (0.01-0.08) K/mm3 Sodium 139 (136-145) mEq/L Potassium 4.2 (3.5-5.1) mEq/L Chloride 105 (98-107) mEq/L Carbon Dioxide 29 (21-32) mEq/L Anion Gap 9.2 (5-15) BUN 13 (7-18) mg/dL Creatinine 0.8 (0.7-1.3) mg/dL Est Cr Clr Drug Dosing 129.42 mL/min Estimated GFR (MDRD) > 60 (>60) mL/min BUN/Creatinine Ratio 16.3 (14-18) Glucose 100 (74-106) mg/dL Hemoglobin A1c (4.50-6.20) % Calcium 7.9 L (8.5-10.1) mg/dL Magnesium 1.8 (1.8-2.4) mg/dl C-Reactive Protein 8.6 H* (<1.0) mg/dL Urine Color (Yellow) Urine Appearance (Clear) Urine pH (5.0-8.0) Ur Specific [place] (1.005-1.030) Urine Protein (Negative) Urine Glucose (UA) (Negative) Urine Ketones (Negative) Urine Occult Blood (Negative) Urine Nitrite (Negative) Urine Bilirubin (Negative) Urine Urobilinogen (0.2-1.0) Ur Leukocyte Esterase (Negative) Urine RBC (0-5) /hpf Urine WBC (0-5) /hpf Ur Squamous Epith Cells (0-5) /hpf Amorphous Sediment (NOT SEEN) /hpf Urine Bacteria (FEW) /hpf Urine Mucus (FEW) /hpf [place] Results Last 24 Hours: Microbiology 10/14/18 23:15 Aerobic Blood Culture - Preliminary Blood NO GROWTH AFTER 2 DAYS Anaerobic Blood Culture - Preliminary Gram Negative Rods 10/14/18 23:25 Aerobic Blood Culture - Preliminary Blood Gram Negative Rods Anaerobic Blood Culture - Preliminary NO GROWTH AFTER 2 DAYS Med Orders - Current: Current Medications Acetaminophen (Tylenol) 975 mg PO Q6H PRN PRN Reason: Pain/Fever Last Admin: 10/17/18 05:01 Dose: 975 mg Albuterol/Ipratropium (Duoneb 3.0-0.5 Mg/3 Ml) 3 ml NEB Q4H PRN PRN Reason: Shortness Of Breath/wheezing Bisacodyl (Dulcolax) 5 mg PO DAILY PRN PRN Reason: Constipation Docusate Sodium (Colace) 100 mg PO BID PRN PRN Reason: Constipation Hydromorphone HCl (Dilaudid) 0.25 mg IVPUSH Q2H PRN PRN Reason: Pain (severe 7-10) Piperacillin Sod/Tazobactam (Sod 4.5 gm/ Sodium Chloride) 100 mls @ 25 mls/hr IV Q8H [facility]ST[facility] Last Admin: 10/17/18 05:03 Dose: 25 mls/hr Promethazine HCl 6.25 mg/ (Sodium Chloride) 50.25 mls @ 100 mls/hr IV Q6H PRN PRN Reason: Nausea/Vomiting Ketorolac Tromethamine (Toradol) 30 mg IV Q6H PRN PRN Reason: Pain (moderate 4-6) Last Admin: 10/15/18 14:18 Dose: 30 mg Ondansetron HCl (Zofran) 4 mg IV Q6H PRN PRN Reason: Nausea/Vomiting Polyethylene Glycol (Miralax) 17 gm PO DAILY PRN PRN Reason: Constipation Senna/Docusate Sodium (Senna Plus) 1 tab PO BID PRN PRN Reason: Constipation Temazepam (Restoril) 15 mg PO BEDTIME PRN PRN Reason: Sleep Discontinued Medications Acetaminophen (Tylenol) 975 mg PO NOW ONE Stop: 10/14/18 23:27 Last Admin: 10/14/18 23:48 Dose: 975 mg Acetaminophen (Tylenol) 975 mg PO Q4H PRN PRN Reason: Pain/Fever Sodium Chloride (Normal Saline) 1,000 mls @ 999 mls/hr IV ONETIME [facility] Last Admin: 10/14/18 23:48 Dose: 999 mls/hr Piperacillin Sod/Tazobactam (Sod 4.5 gm/ Sodium Chloride) 100 mls @ 25 mls/hr IV Q8H ONE Stop: 10/15/18 03:28 Last Admin: 10/14/18 23:48 Dose: 25 mls/hr Vancomycin HCl 1.75 gm/ Sodium (Chloride) 500 mls @ 250 mls/hr IV ONETIME ONE Stop: 10/15/18 00:40 Last Admin: 10/15/18 01:03 Dose: 250 mls/hr Lactated Ringer's (Ringers, Lactated) 1,000 mls @ 999 mls/hr IV .BOLUS ONE Stop: 10/15/18 02:43 Last Admin: 10/15/18 03:18 Dose: 999 mls/hr Lactated Ringer's (Ringers, Lactated) 1,000 mls @ 200 mls/hr IV ASDIRECTED [facility] Last Admin: 10/15/18 04:39 Dose: 200 mls/hr Magnesium Sulfate 2 gm/ Premix 50 mls @ 25 mls/hr IV ONETIME ONE Stop: 10/16/18 11:02 Last Admin: 10/16/18 09:48 Dose: 25 mls/hr Ketorolac Tromethamine (Toradol) 30 mg IVPUSH ONETIME [facility]ST[facility] Last Admin: 10/15/18 00:48 Dose: 30 mg - Exam General: Alert, Oriented, Cooperative, No Acute Distress HEENT: Pupils Equal, Pupils Reactive, EOMI, Mucous Membr. Moist/[place] Neck: Supple Lungs: Clear to Auscultation, Normal Respiratory Effort Cardiovascular: Regular Rate, Regular Rhythm, No Murmurs GI/Abdominal Exam: Normal Bowel Sounds, Soft, Non-Tender, No Organomegaly, No Distention, No Abnormal Bruit, No Mass (Male) Exam: Other (no suprapubic tenderness) Back Exam: Normal Inspection, Full Range of Motion Extremities: Normal Inspection, Normal Range of Motion, Non-Tender, No Pedal Edema, Normal Capillary Refill Peripheral Pulses: 2+: Posterior Tibial (L), Posterior Tibial (R), Dorsalis Pedis (L), Dorsalis Pedis (R) Skin: Warm, Dry, Intact Neurological: No New Focal Deficit Psy/Mental Status: Alert, Normal Affect, Normal Mood - Problem List Review Problem List Initiated/Reviewed/Updated: Yes - My Orders Last 24 Hours: My Active Orders 10/16/18 19:02 CULTURE URINE [RM] Routine 10/16/18 21:44 CULTURE BLOOD [BC] Stat 10/16/18 21:53 CULTURE BLOOD [BC] Stat 10/16/18 23:30 Blood Culture x2 Reflex Set [OM.PC] Stat 10/18/18 05:11 BASIC METABOLIC PANEL,BMP [CHEM] AM C-REACTIVE PROTEIN [CHEM] AM MAGNESIUM [CHEM] AM 10/18/18 07:00 Echo Comp wo Cont [US] Routine 10/19/18 05:11 BASIC METABOLIC PANEL,BMP [CHEM] AM C-REACTIVE PROTEIN [CHEM] AM MAGNESIUM [CHEM] AM 10/20/18 05:11 BASIC METABOLIC PANEL,BMP [CHEM] AM C-REACTIVE PROTEIN [CHEM] AM MAGNESIUM [CHEM] AM - Plan Plan:: Assessment: Acute: Sepsis--> Bacteremia * Elevated WBC at 10.34--> 4.87; CRP 18--> 18.3 --> 15.1 * Fever 103.9, HR 101, WBC of 11.60, upon admission from ED * Blood cultures growing out gram negative rods * Presumptive 2/2 UTI Urinary Tract Infection * Patient reports symptoms: dysuria, cloudy, foul-smelling urine, flank pain * Blood, leukocyte esterase, WBC in urine * Had urinary catheter for 2 weeks post surgery * Unfortunately urine culture was not done; repeat UA is consistent with UTI Left Lower Extremity * Incision sites: clean, dry, no edema, erythema and intact * No dehiscence Resolved: S/p Hyperglycemia * Glucose 200 on admission from ED--> 94 this AM * Likely 2/2 Stress * A1C is 5.30 * Patient denies history of diabetes S/p Hypomagnesemia * Mg of 1.7--> 1.8 * 2/2 Inadequate intake * Replete and monitor Plan: He is essentially the same. Advised patient to take advantage of PRN sleeping pill so he sleeps better tonight. Continue IV antibiotic: Zosyn Monitor left leg for signs of infection Activity as tolerated PT/OT to assess and treat Additional orders as above Encourage to ambulate as tolerated LOS anticipate > 96hrs pending repeat blood culture and 2D echo report Prognosis good
[2018-10-17] MEDS: Ketorolac 30 MG/ML SDV IV PRN (21:22)
[2018-10-18] MEDS: Piperacillin/Tazobactam 4.5 GM in Sodium Chloride 0.9% 100 ML IV SCH ×3 (05:06→21:53)
--- NOTE | 2018-10-18 07:11 | PCM.PN ---
- General Info Date of Service: 10/18/18 Admission Dx/Problem (Free Text): Admission Diagnosis/Problem Admission Diagnosis/Problem Sepsis Subjective Update: Follow Up Functional Status: Reports: Pain Controlled, Tolerating Diet, Ambulating, Urinating. Denies: New Symptoms - Review of Systems General: Denies: Fever, Weakness, Fatigue, Malaise, Chills HEENT: Denies: No Symptoms Pulmonary: Denies: Shortness of Breath Cardiovascular: Denies: Chest Pain, Dyspnea on Exertion, Lightheadedness Gastrointestinal: Denies: Abdominal Pain, Nausea, Vomiting Genitourinary: Reports: No Symptoms Musculoskeletal: Reports: No Symptoms Skin: Reports: Bruising Neurological: Reports: Weakness, Gait Disturbance Psychiatric: Denies: Confusion, Anxiety, Agitation, Hallucinations, Suicidal Ideation Systems Review Comment:: No overnight issues. He slept well last night. He has no acute issues or complaints. His CRP is now down to 3.7. - Patient Data Vitals - Most Recent: Last Vital Signs Temp 36.4 C 10/18/18 04:10 Pulse 58 L 10/18/18 04:10 Resp 14 10/18/18 04:10 BP 126/73 10/18/18 04:10 Pulse Ox 98 10/18/18 04:10 Weight - Most Recent: 79.333 kg I&O - Last 24 Hours: Intake & Output 10/17/18 10/18/18 10/18/18 22:59 06:59 14:59 Intake Total 1280 398 Balance 1280 398 Lab Results Last 24 Hours: Laboratory Results - last 24 hr 10/18/18 10/18/18 Range/Units 05:08 05:08 WBC 5.32 (4.23-9.07) K/mm3 RBC 4.01 L (4.63-6.08) M/mm3 Hgb 11.5 L (13.7-17.5) gm/L Hct 36.6 L (40.1-51.0) % MCV 91.3 (79.0-92.2) fl MCH 28.7 (25.7-32.2) pg MCHC 31.4 L (32.2-35.5) g/dl RDW Std Deviation 42.7 (35.1-43.9) fL Plt Count 279 D (163-337) K/mm3 MPV 10.6 (9.4-12.3) fl Neut % (Auto) 53.9 (34.0-67.9) % Lymph % (Auto) 34.2 (21.8-53.1) % [place] % (Auto) 8.5 (5.3-12.2) % Eos % (Auto) 2.8 (0.8-7.0) Baso % (Auto) 0.2 (0.1-1.2) % Neut # (Auto) 2.87 (1.78-5.38) K/mm3 Lymph # (Auto) 1.82 (1.32-3.57) K/mm3 [place] # (Auto) 0.45 (0.30-0.82) K/mm3 Eos # (Auto) 0.15 (0.04-0.54) K/mm3 Baso # (Auto) 0.01 (0.01-0.08) K/mm3 Sodium 141 (136-145) mEq/L Potassium 4.1 (3.5-5.1) mEq/L Chloride 106 (98-107) mEq/L Carbon Dioxide 27 (21-32) mEq/L Anion Gap 12.1 (5-15) BUN 14 (7-18) mg/dL Creatinine 0.6 L (0.7-1.3) mg/dL Est Cr Clr Drug Dosing 172.56 mL/min Estimated GFR (MDRD) > 60 (>60) mL/min BUN/Creatinine Ratio 23.3 H (14-18) Glucose 122 H (74-106) mg/dL Calcium 8.3 L (8.5-10.1) mg/dL Magnesium 2.0 (1.8-2.4) mg/dl C-Reactive Protein 3.7 H* (<1.0) mg/dL [place] Results Last 24 Hours: Microbiology 10/14/18 23:15 Aerobic Blood Culture - Preliminary Blood NO GROWTH AFTER 3 DAYS Anaerobic Blood Culture - Preliminary Escherichia Coli 10/14/18 23:25 Aerobic Blood Culture - Final Blood Escherichia Coli Anaerobic Blood Culture - Preliminary NO GROWTH AFTER 3 DAYS 10/16/18 21:44 Aerobic Blood Culture - Preliminary Blood - Venous NO GROWTH AFTER 1 DAY Anaerobic Blood Culture - Preliminary NO GROWTH AFTER 1 DAY 10/16/18 21:53 Aerobic Blood Culture - Preliminary Blood - Venous - Lab Draw NO GROWTH AFTER 1 DAY Anaerobic Blood Culture - Preliminary NO GROWTH AFTER 1 DAY Med Orders - Current: Current Medications Acetaminophen (Tylenol) 975 mg PO Q6H PRN PRN Reason: Pain/Fever Last Admin: 10/17/18 05:01 Dose: 975 mg Albuterol/Ipratropium (Duoneb 3.0-0.5 Mg/3 Ml) 3 ml NEB Q4H PRN PRN Reason: Shortness Of Breath/wheezing Bisacodyl (Dulcolax) 5 mg PO DAILY PRN PRN Reason: Constipation Docusate Sodium (Colace) 100 mg PO BID PRN PRN Reason: Constipation Hydromorphone HCl (Dilaudid) 0.25 mg IVPUSH Q2H PRN PRN Reason: Pain (severe 7-10) Piperacillin Sod/Tazobactam (Sod 4.5 gm/ Sodium Chloride) 100 mls @ 25 mls/hr IV Q8H KRISTIE Last Admin: 10/18/18 05:06 Dose: 25 mls/hr Promethazine HCl 6.25 mg/ (Sodium Chloride) 50.25 mls @ 100 mls/hr IV Q6H PRN PRN Reason: Nausea/Vomiting Ketorolac Tromethamine (Toradol) 30 mg IV Q6H PRN PRN Reason: Pain (moderate 4-6) Last Admin: 10/17/18 21:22 Dose: 30 mg Ondansetron HCl (Zofran) 4 mg IV Q6H PRN PRN Reason: Nausea/Vomiting Polyethylene Glycol (Miralax) 17 gm PO DAILY PRN PRN Reason: Constipation Senna/Docusate Sodium (Senna Plus) 1 tab PO BID PRN PRN Reason: Constipation Temazepam (Restoril) 15 mg PO BEDTIME PRN PRN Reason: Sleep Last Admin: 10/17/18 21:22 Dose: 15 mg Discontinued Medications Acetaminophen (Tylenol) 975 mg PO NOW ONE Stop: 10/14/18 23:27 Last Admin: 10/14/18 23:48 Dose: 975 mg Acetaminophen (Tylenol) 975 mg PO Q4H PRN PRN Reason: Pain/Fever Sodium Chloride (Normal Saline) 1,000 mls @ 999 mls/hr IV ONETIME KRISTIE Last Admin: 10/14/18 23:48 Dose: 999 mls/hr Piperacillin Sod/Tazobactam (Sod 4.5 gm/ Sodium Chloride) 100 mls @ 25 mls/hr IV Q8H ONE Stop: 10/15/18 03:28 Last Admin: 10/14/18 23:48 Dose: 25 mls/hr Vancomycin HCl 1.75 gm/ Sodium (Chloride) 500 mls @ 250 mls/hr IV ONETIME ONE Stop: 10/15/18 00:40 Last Admin: 10/15/18 01:03 Dose: 250 mls/hr Lactated Ringer's (Ringers, Lactated) 1,000 mls @ 999 mls/hr IV .BOLUS ONE Stop: 10/15/18 02:43 Last Admin: 10/15/18 03:18 Dose: 999 mls/hr Lactated Ringer's (Ringers, Lactated) 1,000 mls @ 200 mls/hr IV ASDIRECTED KRISTIE Last Admin: 10/15/18 04:39 Dose: 200 mls/hr Magnesium Sulfate 2 gm/ Premix 50 mls @ 25 mls/hr IV ONETIME ONE Stop: 10/16/18 11:02 Last Admin: 10/16/18 09:48 Dose: 25 mls/hr Ketorolac Tromethamine (Toradol) 30 mg IVPUSH ONETIME [facility] Last Admin: 10/15/18 00:48 Dose: 30 mg - Exam General: Alert, Oriented, Cooperative, No Acute Distress HEENT: Pupils Equal, Pupils Reactive, EOMI, Mucous Membr. Moist/[place] Neck: Supple Lungs: Clear to Auscultation, Normal Respiratory Effort Cardiovascular: Regular Rate, Regular Rhythm GI/Abdominal Exam: Normal Bowel Sounds, Soft, Non-Tender, No Organomegaly, No Distention, No Abnormal Bruit, No Mass (Male) Exam: Deferred Back Exam: Normal Inspection, Full Range of Motion Extremities: Normal Inspection, Normal Range of Motion, Non-Tender, No Pedal Edema, Normal Capillary Refill Peripheral Pulses: 2+: Posterior Tibial (L), Posterior Tibial (R), Dorsalis Pedis (L), Dorsalis Pedis (R) Skin: Warm, Dry, Intact Wound/Incisions: Healing Well, Dressing Dry and Intact, No Drainage. No: Erythema Neurological: No New Focal Deficit. No: Normal Gait Psy/Mental Status: Alert, Normal Affect, Normal Mood - Problem List Review Problem List Initiated/Reviewed/Updated: Yes - My Orders Last 24 Hours: My Active Orders 10/18/18 07:00 Echo Comp wo Cont [US] Routine 10/19/18 05:11 BASIC METABOLIC PANEL,BMP [CHEM] AM C-REACTIVE PROTEIN [CHEM] AM CBC WITH AUTO DIFF [HEME] AM MAGNESIUM [CHEM] AM 10/20/18 05:11 BASIC METABOLIC PANEL,BMP [CHEM] AM C-REACTIVE PROTEIN [CHEM] AM CBC WITH AUTO DIFF [HEME] AM MAGNESIUM [CHEM] AM 10/21/18 05:11 CBC WITH AUTO DIFF [HEME] AM - Plan Plan:: Assessment: Acute: Sepsis--> Bacteremia * Elevated WBC at 10.34--> 4.87; CRP 18--> 18.3 --> 15.1-->3.7 * Fever 103.9, HR 101, WBC of 11.60, upon admission from ED * Blood cultures growing out gram negative rods; repeat blood cultures negative so far for 24 hrs * Presumptive 2/2 UTI Urinary Tract Infection * Patient reports symptoms: dysuria, cloudy, foul-smelling urine, flank pain * Blood, leukocyte esterase, WBC in urine * Had urinary catheter for 2 weeks post surgery * Unfortunately urine culture was not done; repeat UA is consistent with UTI but culture is negative Left Lower Extremity * Incision sites: clean, dry, no edema, erythema and intact * No dehiscence Resolved: S/p Hyperglycemia * Glucose 200 on admission from ED--> 94 this AM * Likely 2/2 Stress * A1C is 5.30 * Patient denies history of diabetes S/p Hypomagnesemia * Mg of 1.7--> 1.8 * 2/2 Inadequate intake * Replete and monitor Plan: He is essentially the same Continue IV antibiotic: Zosyn Monitor left leg for signs of infection Activity as tolerated PT/OT to assess and treat Additional orders as above Encourage to ambulate as tolerated LOS anticipate > 96hrs pending repeat blood culture (48 hrs) and 2D echo report Prognosis good
[2018-10-19] MEDS: Piperacillin/Tazobactam 4.5 GM in Sodium Chloride 0.9% 100 ML IV SCH (06:29)
--- NOTE | 2018-10-19 11:54 | PCM.DCSUM1 ---
Discharge Summary - Hospital Course Brief History: Patient is 43 yo male with history of crush fracture to left leg presents to med/surg upon admission from ED due to high fever and bacteremia. Patient states he had been feeling feverish for approximately 3 days. He took his temperature at home yesterday and it was 103.9. He decided to come to the ED at this time. His temperature was recorded as 103.9 in the ED as well. Patient states he was having chills and feeling sweaty. patient had a crush injury to his left femur on 08/30/18 for which he had a nicolasa and screws placed. he states that there has been no pain outside of normal associated with the wound. it is not red or swollen and he able to bear weight on it. He has been seeing PT for his rehabilitation. He had left lynnette in the wound, and they were removed in the ED before admission. Patient reports that he had a urinary catheter placed during surgery, which was not removed until two weeks post surgery. He has been having dysuria since the catheter was placed. He notes cloudy and foul-smelling urine for the past 2 weeks. He has not noticed any raman blood in his urine. He also notes some pain on his sides. Initial labs taken in ER show WBC 10.34, Neutrophils 91.6, Sodium 135, Glucose 200, CRP 18. UA shows 1+ blood, 1+ leukocyte esterase, 5-10 WBC Diagnosis: Stroke: No Modified Scott Scale: No Symptoms at All Modified [place] Scale Score: 0 - Discharge Data Discharge Date: 10/19/18 Discharge Disposition: Home, Self-Care 01 Condition: Good - Discharge Diagnosis/Problem(s) (1) Bacteremia due to Escherichia coli SNOMED Code(s): 991690378317 ICD Code: R78.81 - BACTEREMIA Status: Resolved (2) Sepsis SNOMED Code(s): 14363173 ICD Code: A41.9 - SEPSIS, UNSPECIFIED ORGANISM Status: Resolved Qualifiers: Sepsis type: sepsis due to unspecified organism Sepsis acute organ dysfunction status: without acute organ dysfunction Qualified Code(s): A41.9 - Sepsis, unspecified organism (3) UTI, Urinary tract infectious disease SNOMED Code(s): 69187915 ICD Code: N39.0 - URINARY TRACT INFECTION, SITE NOT SPECIFIED Status: Acute (4) Hyperglycemia SNOMED Code(s): 68105182 ICD Code: R73.9 - HYPERGLYCEMIA, UNSPECIFIED Status: Resolved (5) Hypomagnesemia SNOMED Code(s): 270573179 ICD Code: E83.42 - HYPOMAGNESEMIA Status: Resolved (6) Nicotine use disorder SNOMED Code(s): 43109489 ICD Code: F17.200 - NICOTINE DEPENDENCE, UNSPECIFIED, UNCOMPLICATED Status : Chronic - Patient Summary/Data Operative Procedure(s) Performed: None Complications: None Consults: Consultations 10/15/18 13:40 Consult to Case Management/Director Physical Therapy [CONS] Routine OT Evaluation and Treatment [CONS] Routine PT Evaluation and Treatment [CONS] Routine Labs Pending at D/C: None Recommended Follow-up Testing/Procedures: None Planned Operative Procedure(s) after DC: None Hospital Course: Patient was primarily admitted for sepsis we felt secondary to urinary tract infection and subsequently developed bacteremia. His UA revealed no organism but his blood culture grew E. coli. He received appropriate intravenous antibiotics and he gradually improved on this regimen. He was sent home with additional course of oral antibiotic to complete his infectious treatment. His hospital course was uncomplicated and he was discharged from the facility once his repeat blood culture was negative. He was advised to comply with discharge instructions and to follow up with his family doctor after discharge. The patient expressed understanding and in agreement with the plans as discussed above. All questions or concerns answered. - Patient Instructions Diet: Usual Diet as Tolerated Activity: As Tolerated Driving: Do Not Drive Showering/Bathing: May Shower Wound/Incision Care: Keep Operative Site/Wound Site Clean and Dry Notify Provider of: Fever, Increased Pain, Swelling and Redness, Drainage, Nausea and/or Vomiting Other/Special Instructions: - Please take all new medications as directed. - Resume routine home medications and activity as tolerated. - Recommend follow up with Ortho after discharge. - Call or follow up with your doctor for any concerns or issues after discharge. - Follow up with your doctor in 1 week with repeat labs (CBC, BMP, and Mg). - Come back or seek immediate care should your symptoms persist or get worse - Discharge Plan *PRESCRIPTION DRUG MONITORING PROGRAM REVIEWED*: Not Applicable *COPY OF PRESCRIPTION DRUG MONITORING REPORT IN PATIENT [place]: Not Applicable Prescriptions/Med Rec: Cephalexin [Keflex] 500 mg PO BID #14 capsule Saccharomyces Boulardii [Florastor] 250 mg PO BID #20 capsule Home Medications: Home Meds Acetaminophen [Tylenol Extra Strength] 1,000 mg PO Q4HR PRN 10/15/18 [History] Ibuprofen 400 mg PO Q4HR PRN 10/15/18 [History] Cephalexin [Keflex] 500 mg PO BID #14 capsule 10/19/18 [Rx] Saccharomyces Boulardii [Florastor] 250 mg PO BID #20 capsule 10/19/18 [Rx] Oxygen Therapy Mode: Room Air Patient Handouts: Fever, Adult, Hypomagnesemia, Hyperglycemia, [id number], Smokeless Tobacco Information, Adult, Urosepsis, Bacteremia Referrals: Chucho Paul PA-C [Physician [employer]] - 10/27/18 12:00 pm (Follow up with Chucho RETANA at 1130 for check in and appointment at 1200 on 10/27/2018.) - Discharge Summary/Plan Comment DC Time >30 min.: No Discharge Summary/Plan Comment: Discharge to Home Offered practical counseling on smoking. He was counseled about the dangers of smoking and associated health risks. At this time he is not ready to quit but receptive to the idea of smoking cessation. Patient was provided reading materials or brochures to help when to quit smoking. He was advised to set a specific date, call the Quit line and follow up with his PCP when he is ready to quit. - General Info Date of Service: 10/19/18 Admission Dx/Problem (Free Text: Admission Diagnosis/Problem Admission Diagnosis/Problem Sepsis Subjective Update: Follow Up Functional Status: Reports: Pain Controlled, Tolerating Diet, Ambulating, Urinating - Review of Systems General: Denies: Fever, Weakness, Fatigue, Malaise, Chills HEENT: Reports: No Symptoms Pulmonary: Denies: Shortness of Breath, Pleuritic Chest Pain, Cough Cardiovascular: Denies: Chest Pain, Dyspnea on Exertion, Lightheadedness Gastrointestinal: Denies: Abdominal Pain, Nausea, Vomiting Genitourinary: Reports: No Symptoms Musculoskeletal: Reports: No Symptoms Skin: Reports: No Symptoms Neurological: Denies: Confusion, Numbness, Difficulty Walking, Weakness, Gait Disturbance Psychiatric: Denies: Depression, Anxiety, Agitation, Hallucinations Systems Review Comment: No overnight or acute issues. He is doing relatively well and he is ready to go. - Patient Data Vitals - Most Recent: Last Vital Signs Temp 37.3 C 10/19/18 00:05 Pulse 75 10/19/18 00:05 Resp 12 10/19/18 00:05 BP 132/76 10/19/18 00:05 Pulse Ox 97 10/19/18 00:05 Weight - Most Recent: 78.88 kg I&O - Last 24 hours: Intake & Output 10/18/18 10/19/18 10/19/18 22:59 06:59 14:59 Intake Total 840 350 240 Balance 840 350 240 Imaging Impressions - Last 24 hrs: 2D Echo: LVEF of 55-60%. No RWMA and No evidence of endocarditis visualized. Lab Results - Last 24 hrs: Laboratory Results - last 24 hr 10/19/18 10/19/18 Range/Units 05:12 05:12 WBC 7.54 (4.23-9.07) K/mm3 RBC 4.10 L (4.63-6.08) M/mm3 Hgb 11.8 L (13.7-17.5) gm/L Hct 37.5 L (40.1-51.0) % MCV 91.5 (79.0-92.2) fl MCH 28.8 (25.7-32.2) pg MCHC 31.5 L (32.2-35.5) g/dl RDW Std Deviation 42.6 (35.1-43.9) fL Plt Count 332 (163-337) K/mm3 MPV 10.6 (9.4-12.3) fl Neut % (Auto) 65.0 (34.0-67.9) % Lymph % (Auto) 25.9 (21.8-53.1) % [place] % (Auto) 6.2 (5.3-12.2) % Eos % (Auto) 2.5 (0.8-7.0) Baso % (Auto) 0.1 (0.1-1.2) % Neut # (Auto) 4.90 (1.78-5.38) K/mm3 Lymph # (Auto) 1.95 (1.32-3.57) K/mm3 [place] # (Auto) 0.47 (0.30-0.82) K/mm3 Eos # (Auto) 0.19 (0.04-0.54) K/mm3 Baso # (Auto) 0.01 (0.01-0.08) K/mm3 Sodium 140 (136-145) mEq/L Potassium 4.0 (3.5-5.1) mEq/L Chloride 105 (98-107) mEq/L Carbon Dioxide 28 (21-32) mEq/L Anion Gap 11.0 (5-15) BUN 13 (7-18) mg/dL Creatinine 0.8 (0.7-1.3) mg/dL Est Cr Clr Drug Dosing 129.42 mL/min Estimated GFR (MDRD) > 60 (>60) mL/min BUN/Creatinine Ratio 16.3 (14-18) Glucose 154 H (74-106) mg/dL Calcium 8.0 L (8.5-10.1) mg/dL Magnesium 1.8 (1.8-2.4) mg/dl C-Reactive Protein 1.6 H* (<1.0) mg/dL JAMAL Results - Last 24 hrs: Microbiology 10/14/18 23:15 Aerobic Blood Culture - Preliminary Blood NO GROWTH AFTER 4 DAYS Anaerobic Blood Culture - Final Escherichia Coli 10/14/18 23:25 Aerobic Blood Culture - Final Blood Escherichia Coli Anaerobic Blood Culture - Preliminary NO GROWTH AFTER 4 DAYS 10/16/18 21:44 Aerobic Blood Culture - Preliminary Blood - Venous NO GROWTH AFTER 2 DAYS Anaerobic Blood Culture - Preliminary NO GROWTH AFTER 2 DAYS 10/16/18 21:53 Aerobic Blood Culture - Preliminary Blood - Venous - Lab Draw NO GROWTH AFTER 2 DAYS Anaerobic Blood Culture - Preliminary NO GROWTH AFTER 2 DAYS 10/17/18 00:20 Urine Culture - Final Urine, Catheterized NO GROWTH AFTER 2 DAYS Med Orders - Current: Current Medications Acetaminophen (Tylenol) 975 mg PO Q6H PRN PRN Reason: Pain/Fever Last Admin: 10/17/18 05:01 Dose: 975 mg Albuterol/Ipratropium (Duoneb 3.0-0.5 Mg/3 Ml) 3 ml NEB Q4H PRN PRN Reason: Shortness Of Breath/wheezing Bisacodyl (Dulcolax) 5 mg PO DAILY PRN PRN Reason: Constipation Docusate Sodium (Colace) 100 mg PO BID PRN PRN Reason: Constipation Hydromorphone HCl (Dilaudid) 0.25 mg IVPUSH Q2H PRN PRN Reason: Pain (severe 7-10) Piperacillin Sod/Tazobactam (Sod 4.5 gm/ Sodium Chloride) 100 mls @ 25 mls/hr IV Q8H [facility] Last Admin: 10/19/18 06:29 Dose: 25 mls/hr Promethazine HCl 6.25 mg/ (Sodium Chloride) 50.25 mls @ 100 mls/hr IV Q6H PRN PRN Reason: Nausea/Vomiting Ketorolac Tromethamine (Toradol) 30 mg IV Q6H PRN PRN Reason: Pain (moderate 4-6) Last Admin: 10/17/18 21:22 Dose: 30 mg Ondansetron HCl (Zofran) 4 mg IV Q6H PRN PRN Reason: Nausea/Vomiting Polyethylene Glycol (Miralax) 17 gm PO DAILY PRN PRN Reason: Constipation Senna/Docusate Sodium (Senna Plus) 1 tab PO BID PRN PRN Reason: Constipation Temazepam (Restoril) 15 mg PO BEDTIME PRN PRN Reason: Sleep Last Admin: 10/17/18 21:22 Dose: 15 mg Discontinued Medications Acetaminophen (Tylenol) 975 mg PO NOW ONE Stop: 10/14/18 23:27 Last Admin: 10/14/18 23:48 Dose: 975 mg Acetaminophen (Tylenol) 975 mg PO Q4H PRN PRN Reason: Pain/Fever Sodium Chloride (Normal Saline) 1,000 mls @ 999 mls/hr IV ONETIME [facility] Last Admin: 10/14/18 23:48 Dose: 999 mls/hr Piperacillin Sod/Tazobactam (Sod 4.5 gm/ Sodium Chloride) 100 mls @ 25 mls/hr IV Q8H ONE Stop: 10/15/18 03:28 Last Admin: 10/14/18 23:48 Dose: 25 mls/hr Vancomycin HCl 1.75 gm/ Sodium (Chloride) 500 mls @ 250 mls/hr IV ONETIME ONE Stop: 10/15/18 00:40 Last Admin: 10/15/18 01:03 Dose: 250 mls/hr Lactated Ringer's (Ringers, Lactated) 1,000 mls @ 999 mls/hr IV .BOLUS ONE Stop: 10/15/18 02:43 Last Admin: 10/15/18 03:18 Dose: 999 mls/hr Lactated Ringer's (Ringers, Lactated) 1,000 mls @ 200 mls/hr IV ASDIRECTED [facility] Last Admin: 10/15/18 04:39 Dose: 200 mls/hr Magnesium Sulfate 2 gm/ Premix 50 mls @ 25 mls/hr IV ONETIME ONE Stop: 10/16/18 11:02 Last Admin: 10/16/18 09:48 Dose: 25 mls/hr Ketorolac Tromethamine (Toradol) 30 mg IVPUSH ONETIME [facility] Last Admin: 10/15/18 00:48 Dose: 30 mg - Exam General: Reports: Alert, Oriented, Cooperative, No Acute Distress HEENT: Reports: Pupils Equal, Pupils Reactive, EOMI, Mucous Membr. Moist/[place] Neck: Reports: Supple Lungs: Reports: Clear to Auscultation, Normal Respiratory Effort Cardiovascular: Reports: Regular Rate, Regular Rhythm GI/Abdominal Exam: Normal Bowel Sounds, Soft, Non-Tender, No Organomegaly, No Distention, No Abnormal Bruit (Male) Exam: Deferred Rectal (Males) Exam: Deferred Back Exam: Reports: Normal Inspection, Decreased Range of Motion Extremities: Normal Inspection, Normal Range of Motion, Non-Tender, No Pedal Edema, Normal Capillary Refill Skin: Reports: Warm, Dry, Intact Wound/Incisions: Reports: Healing Well, Dressing Dry and Intact, No Drainage Neurological: Reports: No New Focal Deficit. Denies: Normal Gait Psy/Mental Status: Reports: Alert, Normal Affect, Normal Mood
[2018-10-19 12:28] VITALS: BP 127/82
== END 2018-10-19 14:18 | disposition home or self-care (01) | DRG 872 ==
LOC: JD.ED 21:44 → JD.MS 10-15 01:31
PROVIDERS: ADMIT Internal Medicine; ATTEND Internal Medicine
DX: A41.51 Sepsis due to Escherichia coli [E. coli] (principal); N39.0 Urinary tract infection, site not specified; R73.9 Hyperglycemia, unspecified; E83.42 Hypomagnesemia; H54.7 Unspecified visual loss; S72.92XD Unspecified fracture of left femur, subsequent encounter for closed fracture with routine healing; S77.12XD Crushing injury of left thigh, subsequent encounter; Z79.899 Other long term (current) drug therapy; Z87.891 Personal history of nicotine dependence; Z88.5 Allergy status to narcotic agent
CPT/HCPCS: 36415; 71045; 71045-26; 80048; 80053; 81001; 83036; 83605; 83735; 85025; 86140; 87040; 87086; 87186; 87804; 93306; 96365; 96367; 96375; 97161-GP; 97165-GO; 99284; 99284-25; A9270-GY; J1885; J2543; J3370; J3475; J7030; J7040; J7120

== ENCOUNTER 2019-10-09 00:32 | Emergency (ER) | payer MEDICAID ==
[2019-10-09 00:57] VITALS: BP 142/80; PULSE 63
[2019-10-09] MEDS ORDERED: Amoxicillin 500 MG Cap PO ONE (01:12)
--- NOTE | 2019-10-09 01:12 | EDM.PDOC ---
ED HPI GENERAL MEDICAL PROBLEM - General Chief Complaint: General Stated Complaint: TOOTHACHE Time Seen by Provider: 10/09/19 01:05 - History of Present Illness INITIAL COMMENTS - FREE TEXT/NARRATIVE: 44-year-old male presents the emergency room with dental pain. This started getting bad 2 days ago, progressively got worse. Patient cannot get into see a dentist because of lack of insurance. Patient denies any drainage. He has not had any fevers or chills. He has had no other symptoms no ear pain no cough congestion or abdominal pain. Oral/Mouth Pain Score (Numeric/FACES): 5 - Related Data Allergies Allergy/AdvReac Type Severity Reaction Status Date / Time hydrocodone Allergy Itching Verified 10/09/19 00:57 Home Meds: Home Meds . [No Known Home Meds] 10/09/19 [History] Past Medical History - Past Health History Medical/Surgical History: Denies Medical/Surgical History HEENT History: Reports: Impaired Vision, Other (See Below) Other HEENT History: Pt verbalized is suppose to wear glasses but does not have any Genitourinary History: Reports: Retention, Urinary Other Genitourinary History: has falcon cath in place Musculoskeletal History: Reports: Other (See Below) Other Musculoskeletal History: left femur fracture- has nicolasa in femur at this tme - Past Surgical History HEENT Surgical History: Reports: None Social & Family History - Family History Family Medical History: Noncontributory - Tobacco Use Smoking Status *Q: Current Every Day Smoker Years of Tobacco use: 24 Packs/Tins Daily: 1 - Caffeine Use Caffeine Use: Reports: Soda, Tea - Recreational Drug Use Recreational Drug Use: Yes Recreational Drug Type: Reports: Methamphetamine Recreational Drug Use Frequency: Monthly ED ROS GENERAL - Review of Systems Review Of Systems: See Below Constitutional: Reports: No Symptoms HEENT: Reports: Dental Pain Respiratory: Reports: No Symptoms Cardiovascular: Reports: No Symptoms GI/Abdominal: Reports: No Symptoms ED EXAM, GENERAL - Physical Exam Exam: See Below Exam Limited By: No Limitations General Appearance: Alert, No Apparent Distress Eye Exam: Bilateral Eye: Normal Inspection Ears: Normal External Exam, Normal Canal, Hearing Grossly Normal, Normal TMs Nose: Normal Inspection, Normal Mucosa, No Blood Throat/Mouth: Normal Inspection, Normal Lips, Normal Gums, Normal Oropharynx, Normal Voice, No Airway Compromise, Other (Left second most posterior tooth is exquisitely tender. He does not seem to have much redness or swelling around it. He has some darkness developing the central portion of the tooth this probably represents developing dental decay.) Neck: Normal Inspection, Supple, Non-Tender. No: Lymphadenopathy (L), Lymphadenopathy (R) Respiratory/Chest: No Respiratory Distress, Lungs Clear, Normal Breath Sounds Cardiovascular: Normal Peripheral Pulses, Regular Rate, Rhythm, No Edema Course - Vital Signs Last Recorded V/S: Last Vital Signs Temp 36.2 C 10/09/19 00:56 Pulse 63 10/09/19 00:56 Resp 20 10/09/19 00:56 BP 142/80 H 10/09/19 00:56 Pulse Ox 100 10/09/19 00:56 Departure - Departure Time of Disposition: : Disposition: Home, Self-Care 01 Clinical Impression: Dental caries - Discharge Information Referrals: PCP,None [Primary Care Provider] - Additional Instructions: Return to the emergency room with any questions problems or worsening symptoms.. In order to get this fixed you must see a dentist. Take the amoxicillin as directed. Tylenol and/or Motrin as needed for discomfort. Sepsis Event Note (ED) - Evaluation Sepsis Screening Result: No Definite Risk - Focused Exam Vital Signs: Vital Signs Temp Pulse Resp BP Pulse Ox 10/09/19 00:56 36.2 C 63 20 142/80 H 100
== END 2019-10-09 01:31 | disposition home or self-care (01) ==
LOC: JD.ED 00:32
DX: K02.9 Dental caries, unspecified (principal); F17.210 Nicotine dependence, cigarettes, uncomplicated; Z88.5 Allergy status to narcotic agent
CPT/HCPCS: 99282; A9270

== ENCOUNTER 2020-04-30 11:01 | Emergency (ER) | payer MEDICAID ==
[2020-04-30 11:23] VITALS: BP 156/79; PULSE 66
[2020-04-30] MEDS ORDERED: Fluorescein 1 MG Ophth Strip EYELF ONE (11:25)
[2020-04-30] MEDS ORDERED: Proparacaine 0.5% Ophth Soln 15 ML Bottle EYELF ONE (11:27)
--- NOTE | 2020-04-30 12:03 | EDM.PDOC ---
ED HPI GENERAL MEDICAL PROBLEM - General Chief Complaint: Eye Problems Stated Complaint: EYE PAIN Time Seen by Provider: 04/30/20 11:24 Source of Information: Reports: Patient History Limitations: Reports: No Limitations - History of Present Illness INITIAL COMMENTS - FREE TEXT/NARRATIVE: 44-year-old male presents to the emergency department today with complaints of left eye pain. Patient states he was putting on his sunglasses yesterday when he poked himself in the left eye. Patient states that it has been painful since and it has been difficult for him to open his eye due to burning and irritation. Nursing staff were unable to assess his visual acuity due to the fact that the patient cannot keep his eye open. Onset: Sudden Onset Date: 04/29/20 Left Eye Pain Score (Numeric/FACES): 6 - Related Data Allergies Allergy/AdvReac Type Severity Reaction Status Date / Time hydrocodone Allergy Severe Itching Verified 04/30/20 11:23 Home Meds: Home Meds Ciprofloxacin [Ciloxan 0.3% Ophth Soln] 1 drop EYELF QID #1 bottle 04/30/20 [Rx] Past Medical History - Past Health History Medical/Surgical History: Denies Medical/Surgical History HEENT History: Reports: Impaired Vision, Other (See Below) Other HEENT History: Pt verbalized is suppose to wear glasses but does not have any Genitourinary History: Reports: Retention, Urinary Other Genitourinary History: has falcon cath in place Musculoskeletal History: Reports: Fracture, Other (See Below) Other Musculoskeletal History: left femur fracture- 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 Social & Family History - Family History Family Medical History: No Pertinent Family History - Tobacco Use Tobacco Use Status *Q: Current Every Day Tobacco User Years of Tobacco use: 4 Packs/Tins Daily: 0.1 - Caffeine Use Caffeine Use: Reports: Energy Drinks, Soda, Tea - Recreational Drug Use Recreational Drug Use: No ED ROS GENERAL - Review of Systems Review Of Systems: Comprehensive ROS is negative, except as noted in HPI. ED EXAM GENERAL W FULL EYE - Physical Exam Exam: See Below Exam Limited By: No Limitations General Appearance: Alert, WD/WN, Mild Distress Eye Exam: Left Eye: Conjunctival Injection, Corneal Abrasion (On the iris just at the 6 o'clock position), EOMI, PERRL Eyelids: Bilateral: Normal Appearance Conjunctiva & Sclera: Left: Injected Cornea Exam: Left: Corneal Abrasion (Just at the 6 o'clock position on the lower edge of the iris.), Examined with Flourescein Extraocular Movements: Bilateral: Intact Course - Vital Signs Text/Narrative:: 44-year-old male with complaints of left eye pain that developed last evening when he poked himself in his left eye with his sunglasses. Patient states it has been difficult to keep his eye open and he is sensitive to light since the occurrence. Upon assessment, 1 drop of proparacaine was placed into the left eye. Patient states this did ease the discomfort however it is still present. Fluorescein was then placed in the patient's eye and an eye exam was performed. Corneal abrasion is noted at the 6 o'clock position just on the lower edge of the iris. Patient will be given a prescription for Cipro eyedrops and encouraged to take Tylenol and/or ibuprofen for discomfort. Last Recorded V/S: Last Vital Signs Temp 97.7 F 04/30/20 11:20 Pulse 66 04/30/20 11:20 Resp 16 04/30/20 11:20 BP 156/79 H 04/30/20 11:20 Pulse Ox 99 04/30/20 11:20 - Orders/Labs/Meds Meds: Medications Discontinued Medications Generic Name Dose Route Start Last Admin Trade Name Pablo PRN Reason Stop Dose Admin Fluorescein Sodium 1 mg 04/30/20 11:25 04/30/20 11:42 Ful-Nathalie EYELF 04/30/20 11:26 1 mg ONETIME ONE Administration Proparacaine HCl 1 ml 04/30/20 11:27 04/30/20 11:42 Proparacaine 0.5% Ophth Soln EYELF 04/30/20 11:28 1 ml ONETIME ONE Administration Departure - Departure Time of Disposition: 12:03 Disposition: Home, Self-Care 01 Condition: Good Clinical Impression: Corneal abrasion Qualifiers: Encounter type: initial encounter Laterality: left Qualified Code(s): S05.02XA - Injury of conjunctiva and corneal abrasion without foreign body, left eye, initial encounter - Discharge Information Prescriptions: Ciprofloxacin [Ciloxan 0.3% Ophth Soln] 1 drop EYELF QID #1 bottle Referrals: PCP,None [Primary Care Provider] - Additional Instructions: You were seen in the emergency department today with complaints of left eye pain after you stated you poked herself in the eye with your sunglasses last evening. Upon examination you do have an abrasion on your cornea. This is treated with antibiotic eyedrops. I have sent a prescription for Cipro eyedrops. You will need to place 1 drop in your left eye 4 times a day for a total of 5 days. This will likely take a couple of days to notice improvement. You may take Tylenol 650 mg every 4 hours as needed for discomfort or ibuprofen 600 mg every 6-8 hours as needed for discomfort. You should see an improvement in the next 48 to 72 hours however if you do not I recommend that you follow-up with your eye care provider. Sepsis Event Note (ED) - Evaluation Sepsis Screening Result: No Definite Risk - Focused Exam Vital Signs: Vital Signs Temp Pulse Resp BP Pulse Ox 04/30/20 11:20 97.7 F 66 16 156/79 H 99
== END 2020-04-30 12:17 | disposition home or self-care (01) ==
LOC: JD.ED 11:01
DX: S05.02XA Injury of conjunctiva and corneal abrasion without foreign body, left eye, initial encounter (principal); Z72.0 Tobacco use; Z88.5 Allergy status to narcotic agent; X58.XXXA Exposure to other specified factors, initial encounter
CPT/HCPCS: 99283

== ENCOUNTER 2024-05-07 19:34 | Emergency (ER) | payer MEDICAID ==
[2024-05-07 20:02] VITALS: PULSE 78
[2024-05-07] MEDS: Lisinopril 20 MG Tab PO STA (20:26)
[2024-05-07 20:27] VITALS: BP 169/102
== END 2024-05-07 21:23 | disposition home or self-care (01) ==
LOC: JD.ED 19:34
DX: J20.8 Acute bronchitis due to other specified organisms (principal); F17.200 Nicotine dependence, unspecified, uncomplicated; I10 Essential (primary) hypertension; Z88.8 Allergy status to other drugs, medicaments and biological substances; Z79.899 Other long term (current) drug therapy
CPT/HCPCS: 71045; 87428; 99284; A9270